=== PATIENT | male | born 1960 | race American Indian/Alaskan Native ===

== ENCOUNTER 2017-10-26 22:42 | Emergency (ER) | payer OTHER ==
[2017-10-26] MEDS ORDERED: Magnesium Citrate Solution 296 ML Bottle PO ONE (22:43)
[2017-10-26] MEDS ORDERED: Ondansetron 4 MG Tab.DIS PO ONE (22:43)
[2017-10-26] MEDS ORDERED: Sodium Chloride 0.9% 1,000 ML IV ONE (23:02)
[2017-10-26] MEDS ORDERED: Ketorolac 30 MG/ML SDV IVPUSH ONE (23:02)
[2017-10-26] MEDS ORDERED: Ondansetron 4 MG/2 ML SDV IV ONE (23:02)
[2017-10-26] MEDS ORDERED: HYDROmorphone 0.5 MG/0.5 ML Syringe IVPUSH ONE (23:50)
[2017-10-26] MEDS ORDERED: Insulin Regular, Human 100 Units/ML 3 ML Vial IV ONE (23:50)
--- NOTE | 2017-10-27 01:49 | EDM.PDOC ---
ED HPI GENERAL MEDICAL PROBLEM - General Chief Complaint: Flank Pain Stated Complaint: KECHINMAY PAIN [id number] Time Seen by Provider: 10/26/17 23:10 Source of Information: Reports: Patient, RN Notes Reviewed History Limitations: Reports: No Limitations - History of Present Illness INITIAL COMMENTS - FREE TEXT/NARRATIVE: c/o Left flank through lower left quad since yesterday , hx kidney stones in past. No fever or chills, transient nausea. Treatments PILLOW AGENT: Reports: Other (see below) Other Treatments PILLOW AGENT: hydrocodone. Left Flank Pain Score (Numeric/FACES): 9 - Related Data Allergies Allergy/AdvReac Type Severity Reaction Status Date / Time codeine Allergy Rash Verified 10/26/17 22:57 Home Meds: Home Meds Aspirin [Adult Low Dose Aspirin EC] 81 mg PO DAILY 07/27/13 [History] Isosorbide Mononitrate [Isosorbide Mononitrate ER] 60 mg PO DAILY 07/27/13 [ History] Metoprolol Tartrate 25 mg PO BID 07/27/13 [History] Pregabalin [Lyrica] 100 mg PO BID 07/27/13 [History] glyBURIDE [Glyburide] 2.5 mg PO BID 07/27/13 [History] Lisinopril 2.5 mg PO DAILY 01/28/15 [History] Insulin Detemir [Levemir] 25 units SQ DAILY 10/27/17 [History] Past Medical History HEENT History: Reports: Impaired Vision Other HEENT History: reading and night driving glasses Cardiovascular History: Reports: High Cholesterol, Hypertension, Stents, Other ( See Below) Other Cardiovascular History: Had angioplasty Respiratory History: Reports: None Gastrointestinal History: Reports: Diverticulosis Genitourinary History: Reports: Renal Calculus, Other (See Below) Other Genitourinary History: kidney failure Musculoskeletal History: Reports: Arthritis Neurological History: Reports: None Psychiatric History: Reports: None Endocrine/Metabolic History: Reports: Diabetes, Type II Hematologic History: Reports: None Immunologic History: Reports: None Oncologic (Cancer) History: Reports: None Dermatologic History: Reports: None - Past Surgical History Cardiovascular Surgical History: Reports: Coronary Artery Stent GI Surgical History: Reports: Appendectomy, Cholecystectomy Neurological Surgical History: Reports: None Musculoskeletal Surgical History: Reports: Arthroscopic Knee Dermatological Surgical History: Reports: None Social & Family History - Family History Family Medical History: Noncontributory - Tobacco Use Smoking Status *Q: Never Smoker Second Hand Smoke Exposure: No - Caffeine Use Caffeine Use: Reports: None - Alcohol Use Days Per Week of Alcohol Use: 0 - Recreational Drug Use Recreational Drug Use: No ED ROS GENERAL - Review of Systems Review Of Systems: ROS reveals no pertinent complaints other than HPI. ED EXAM, GI/ABD - Physical Exam Exam: See Below Exam Limited By: Other General Appearance: No Apparent Distress Eyes: Bilateral: EOMI Ears: Normal External Exam Nose: Normal Inspection Throat/Mouth: Normal Inspection Head: Atraumatic, Normocephalic Neck: Normal Inspection Respiratory/Chest: No Respiratory Distress, Lungs Clear, Normal Breath Sounds Cardiovascular: Normal Peripheral Pulses GI/Abdominal Exam: Normal Bowel Sounds, Soft, Tender (LLQ). No: Distended, Guarding Back Exam: Full Range of Motion. No: CVA Tenderness (L), CVA Tenderness (R) Extremities: Normal Inspection, Normal Range of Motion Neurological: Alert, Oriented Psychiatric: Anxious Skin Exam: Warm, Dry, Intact, Normal Color Course - Vital Signs Last Recorded V/S: Last Vital Signs Temp 96.9 F 10/27/17 02:03 Pulse 57 L 10/27/17 02:03 Resp 14 10/27/17 02:03 BP 161/89 H 10/27/17 02:03 Pulse Ox 95 10/27/17 02:03 - Orders/Labs/Meds Orders: Active Orders 24 hr Category Date Time Status Glucose [Blood Glucose Check, Bedside] [RC] ONETIME Care 10/27/17 01:46 Active Labs: Laboratory Tests 10/26/17 10/26/17 10/26/17 Range/Units 22:50 23:10 23:10 WBC 9.3 (5.0-10.0) 10^3/uL RBC 4.44 L (4.6-6.2) 10^6/uL Hgb 13.6 L (14.0-18.0) g/dL Hct 38.7 L (40.0-54.0) % MCV 87.2 (80-100) fL MCH 30.6 (27.0-34.0) pg MCHC 35.1 H (33.0-35.0) g/dL Plt Count 289 (150-450) 10^3/uL Neut % (Auto) 54.7 (42.2-75.2) % Lymph % (Auto) 29.7 (20.5-50.1) % [place] % (Auto) 10.0 H (2-8) % Eos % (Auto) 5.4 H (1.0-3.0) % Baso % (Auto) 0.2 (0.0-1.0) % Sodium 134 L (135-145) mmol/L Potassium 4.1 (3.6-5.0) mmol/L Chloride 100 L (101-111) mmol/L Carbon Dioxide 25.0 (21.0-31.0) mmol/L Anion Gap 13.1 BUN 22 H (7-18) mg/dL Creatinine 1.8 H (0.6-1.3) mg/dL Est Cr Clr Drug Dosing 52.40 mL/min Estimated GFR (MDRD) 39 BUN/Creatinine Ratio 12.22 Glucose 407 H* (74-105) mg/dL POC Glucose (70-105) mg/dl Calcium 8.7 (8.4-10.2) mg/dl Total Bilirubin 0.8 (0.2-1.0) mg/dL AST 22 (10-42) IU/L ALT 17 (10-60) IU/L Alkaline Phosphatase 111 (42-121) IU/L Total Protein 7.5 (6.7-8.2) g/dl Albumin 4.1 (3.2-5.5) g/dl Globulin 3.4 Albumin/Globulin Ratio 1.21 Urine Color Yellow (YELLOW) Urine Appearance Clear (CLEAR) Urine pH 6.0 (5.0-9.0) Ur Specific [place] 1.010 (1.005-1.030) Urine Protein 30 H (NEGATIVE) Urine Glucose (UA) 500 H (NEGATIVE) Urine Ketones Negative (NEGATIVE) Urine Occult Blood Negative (NEGATIVE) Urine Nitrite Negative (NEGATIVE) Urine Bilirubin Negative (NEGATIVE) Urine Urobilinogen 0.2 (0.2-1.0) mg/dL Ur Leukocyte Esterase Negative (NEGATIVE) Urine RBC Not seen /HPF Urine WBC Not seen (0-5/HPF) /HPF Ur Epithelial Cells Rare /HPF Urine Bacteria Rare (0-FEW/HPF) /HPF 10/27/17 10/27/17 Range/Units 01:35 01:49 WBC (5.0-10.0) 10^3/uL RBC (4.6-6.2) 10^6/uL Hgb (14.0-18.0) g/dL Hct (40.0-54.0) % MCV (80-100) fL MCH (27.0-34.0) pg MCHC (33.0-35.0) g/dL Plt Count (150-450) 10^3/uL Neut % (Auto) (42.2-75.2) % Lymph % (Auto) (20.5-50.1) % Sierra % (Auto) (2-8) % Eos % (Auto) (1.0-3.0) % Baso % (Auto) (0.0-1.0) % Sodium (135-145) mmol/L Potassium (3.6-5.0) mmol/L Chloride (101-111) mmol/L Carbon Dioxide (21.0-31.0) mmol/L Anion Gap BUN (7-18) mg/dL Creatinine (0.6-1.3) mg/dL Est Cr Clr Drug Dosing mL/min Estimated GFR (MDRD) BUN/Creatinine Ratio Glucose (74-105) mg/dL POC Glucose 259 H 257 H (70-105) mg/dl Calcium (8.4-10.2) mg/dl Total Bilirubin (0.2-1.0) mg/dL AST (10-42) IU/L ALT (10-60) IU/L Alkaline Phosphatase (42-121) IU/L Total Protein (6.7-8.2) g/dl Albumin (3.2-5.5) g/dl Globulin Albumin/Globulin Ratio Urine Color (YELLOW) Urine Appearance (CLEAR) Urine pH (5.0-9.0) Ur Specific [place] (1.005-1.030) Urine Protein (NEGATIVE) Urine Glucose (UA) (NEGATIVE) Urine Ketones (NEGATIVE) Urine Occult Blood (NEGATIVE) Urine Nitrite (NEGATIVE) Urine Bilirubin (NEGATIVE) Urine Urobilinogen (0.2-1.0) mg/dL Ur Leukocyte Esterase (NEGATIVE) Urine RBC /HPF Urine WBC (0-5/HPF) /HPF Ur Epithelial Cells /HPF Urine Bacteria (0-FEW/HPF) /HPF Meds: Medications Discontinued Medications Generic Name Dose Route Start Last Admin Trade Name Freq PRN Reason Stop Dose Admin Hydromorphone HCl 1 mg 10/26/17 23:50 10/27/17 00:02 Dilaudid IVPUSH 10/26/17 23:51 1 mg ONETIME ONE Administration Sodium Chloride 1,000 mls @ 999 mls/hr 10/26/17 23:02 10/26/17 23:18 Normal Saline IV 10/27/17 00:02 999 mls/hr .BOLUS ONE Administration Insulin Human Regular 5 unit 10/26/17 23:50 10/27/17 00:03 Humulin R IV 10/26/17 23:51 5 units ONETIME ONE Administration Ketorolac Tromethamine 30 mg 10/26/17 23:02 10/26/17 23:15 Toradol IVPUSH 10/26/17 23:03 30 mg ONETIME ONE Administration Magnesium Citrate Confirm 10/27/17 01:52 10/27/17 02:06 Citrate Of Magnesia Administered 10/27/17 01:53 Not Given Dose 296 ml .ROUTE .STK-MED ONE Ondansetron HCl 4 mg 10/26/17 23:02 10/26/17 23:15 Zofran IV 10/26/17 23:03 4 mg ONETIME ONE Administration Ondansetron HCl Confirm 10/27/17 01:52 10/27/17 02:06 Zofran Odt Administered 10/27/17 01:53 Not Given Dose 4 mg .ROUTE .STK-MED ONE Ondansetron HCl Confirm 10/27/17 01:53 10/27/17 02:06 Zofran Odt Administered 10/27/17 01:54 Not Given Dose 4 mg .ROUTE .STK-MED ONE - Radiology Interpretation Free Text/Narrative:: Abdominal CT: No obstructing urinary calculus disease mild inflammation edema around pancreatic head colonic constipation, diverticulosis with out evidence of diverticulitis Departure - Departure Time of Disposition: 01:48 Disposition: Home, Self-Care 01 Condition: Good Clinical Impression: Constipation Qualifiers: Constipation type: unspecified constipation type Qualified Code(s): K59.00 - Constipation, unspecified - Discharge Information Instructions: Constipation, Adult, [id number] Referrals: PCP,None [Primary Care Provider] - Forms: ED Department Discharge Additional Instructions: increase fluids in diet magnesium citrate on bottle tonight zofran 4mg ODT one every 4 hours as needed for nausea #2 clinic follow up next week - My Orders Last 24 Hours: My Active Orders 10/27/17 01:46 Glucose [Blood Glucose Check, Bedside] [RC] ONETIME - Assessment/Plan Last 24 Hours: My Active Orders 10/27/17 01:46 Glucose [Blood Glucose Check, Bedside] [RC] ONETIME
[2017-10-27] MEDS ORDERED: Magnesium Citrate Solution 296 ML Bottle ONE (01:52)
[2017-10-27] MEDS ORDERED: Ondansetron 4 MG Tab.DIS ONE ×2 (01:52→01:53)
[2017-10-27 02:05] VITALS: BP 161/89
== END 2017-10-27 02:11 | disposition home or self-care (01) ==
LOC: DL.ED 22:42
DX: K59.00 Constipation, unspecified (principal); I10 Essential (primary) hypertension; E78.00 Pure hypercholesterolemia, unspecified; E11.9 Type 2 diabetes mellitus without complications; Z95.5 Presence of coronary angioplasty implant and graft; Z90.49 Acquired absence of other specified parts of digestive tract; Z79.4 Long term (current) use of insulin; Z79.82 Long term (current) use of aspirin; Z79.899 Other long term (current) drug therapy; Z88.5 Allergy status to narcotic agent; Z87.442 Personal history of urinary calculi
CPT/HCPCS: 36415; 74176; 80053; 81001; 82962; 85025; 96361; 96374; 96375; 99284; J1170; J1815; J1885; J2405; J7030; A9270-GY

== ENCOUNTER 2017-10-27 12:26 | Emergency (ER) | payer OTHER ==
[2017-10-27] MEDS ORDERED: Sodium Chloride 0.9% 10 ML Syringe FLUSH PRN (13:12)
[2017-10-27] MEDS ORDERED: Sodium Chloride 0.9% 1,000 ML IV ONE (13:13)
[2017-10-27] MEDS ORDERED: Ondansetron 4 MG/2 ML SDV IV ONE ×2 (13:13→15:00)
--- NOTE | 2017-10-27 14:33 | CR ---
Clinical history: 57-year-old male with abdominal pain (constipation?) reported to have "diverticulos is colon; mild inflammation around the pancreatic head; no obstructing urinary calculus (appendectomy and cholecystectomy)" on CT exam 14 hours ago". Interpretation: 4 films (flat/upright abdomen) confirm surgical clips right upper quadrant gallbladde r fossa. Large male with hypertrophic arthritic changes of the spine. No sign of abdominal soft tissue mass lesion, pathologic calcification, mechanical bowel obstruction or free intraperitoneal air. Lung bases clear. Minimal stool. No new foreign bodies. CONCLUSION: No acute intraperitoneal abnormality.
[2017-10-27 16:19] VITALS: BP 102/43
--- NOTE | 2017-10-27 17:48 | EDM.PDOC ---
Scribed by Olive Maria 10/27/17 [id number] for Ralph Swan MD ED HPI GENERAL MEDICAL PROBLEM - General Chief Complaint: Gastrointestinal Problem Stated Complaint: CONSTIPATION & SICK FROM MEDS Time Seen by Provider: 10/27/17 13:12 Source of Information: Reports: Patient, RN, RN Notes Reviewed History Limitations: Reports: No Limitations - History of Present Illness INITIAL COMMENTS - FREE TEXT/NARRATIVE: Pt presents with c/o constipation, abdominal pain and vomiting. He states he was seen here last night and had labs and CT abd/pelvis. Pt was given Mag. Citrate, but he vomits it up. No BM x4-5 days. Denies fever, chills, or urinary Sx's. Onset: Gradual Location: Reports: Abdomen Quality: Reports: Ache, Pressure Severity: Moderate Improves with: Reports: None Worsens with: Reports: Eating Associated Symptoms: Reports: No Other Symptoms Abdomen Pain Score (Numeric/FACES): 8 - Related Data Allergies Allergy/AdvReac Type Severity Reaction Status Date / Time codeine Allergy Rash Verified 10/26/17 22:57 Home Meds: Home Meds Aspirin [Adult Low Dose Aspirin EC] 81 mg PO DAILY 07/27/13 [History] Isosorbide Mononitrate [Isosorbide Mononitrate ER] 60 mg PO DAILY 07/27/13 [ History] Metoprolol Tartrate 25 mg PO BID 07/27/13 [History] Pregabalin [Lyrica] 100 mg PO BID 07/27/13 [History] glyBURIDE [Glyburide] 2.5 mg PO BID 07/27/13 [History] Lisinopril 2.5 mg PO DAILY 01/28/15 [History] Insulin Detemir [Levemir] 25 units SQ DAILY 10/27/17 [History] Past Medical History HEENT History: Reports: Impaired Vision Other HEENT History: reading and night driving glasses Cardiovascular History: Reports: High Cholesterol, Hypertension, Stents, Other ( See Below) Other Cardiovascular History: Had angioplasty Respiratory History: Reports: None Gastrointestinal History: Reports: Diverticulosis Genitourinary History: Reports: Renal Calculus, Other (See Below) Other Genitourinary History: kidney failure Musculoskeletal History: Reports: Arthritis Neurological History: Reports: None Psychiatric History: Reports: None Endocrine/Metabolic History: Reports: Diabetes, Type II Hematologic History: Reports: None Immunologic History: Reports: None Oncologic (Cancer) History: Reports: None Dermatologic History: Reports: None - Past Surgical History Cardiovascular Surgical History: Reports: Coronary Artery Stent GI Surgical History: Reports: Appendectomy, Cholecystectomy Neurological Surgical History: Reports: None Musculoskeletal Surgical History: Reports: Arthroscopic Knee Dermatological Surgical History: Reports: None Social & Family History - Family History Family Medical History: Noncontributory - Tobacco Use Smoking Status *Q: Never Smoker Second Hand Smoke Exposure: No - Caffeine Use Caffeine Use: Reports: Coffee, Soda - Alcohol Use Days Per Week of Alcohol Use: 0 - Recreational Drug Use Recreational Drug Use: No - Living Situation & Occupation Living situation: Reports: Occupation: Employed ED ROS GENERAL - Review of Systems Review Of Systems: ROS reveals no pertinent complaints other than HPI. ED EXAM, GI/ABD - Physical Exam Exam: See Below Exam Limited By: No Limitations General Appearance: Alert, WD/WN, No Apparent Distress, Obese, Other ( uncomfortable but non-toxic appearing) Eyes: Bilateral: Normal Appearance (no scleral icterus) Nose: Normal Inspection Throat/Mouth: Normal Inspection Head: Atraumatic, Normocephalic Neck: Normal Inspection Respiratory/Chest: No Respiratory Distress, Lungs Clear, Normal Breath Sounds, No Accessory Muscle Use, Chest Non-Tender Cardiovascular: Regular Rate, Rhythm, No Edema GI/Abdominal Exam: Soft, No Distention, Tender (tender to palp. of LUQ and LLQ) , Abnormal Bowel Sounds (hypoactive). No: Guarding, Rigid, Rebound (Male) Exam: Deferred Rectal (Males) Exam: Deferred Back Exam: Normal Inspection, Full Range of Motion. No: CVA Tenderness (L), CVA Tenderness (R) Extremities: Normal Inspection, Normal Range of Motion, Non-Tender, Normal Capillary Refill, No Pedal Edema Neurological: Alert, Oriented, CN II-XII Intact, Normal Cognition, Normal Gait, No Motor/Sensory Deficits Psychiatric: Normal Affect, Normal Mood Skin Exam: Warm, Dry, Intact, Normal Color, No Rash Course - Vital Signs Last Recorded V/S: Last Vital Signs Temp 37.1 C 10/27/17 16:05 Pulse 65 10/27/17 16:05 Resp 18 10/27/17 16:05 BP 102/43 L 03/10/18 16:05 Pulse Ox 96 10/27/17 16:05 - Orders/Labs/Meds Orders: Active Orders 24 hr Category Date Time Status Enema [RC] ASDIRECTED Care 10/27/17 14:59 Active Peripheral IV Care [RC] . DIRECTED Care 10/27/17 13:13 Active Peripheral IV Insertion Adult [OM.PC] Stat Oth 10/27/17 13:12 Ordered Labs: Laboratory Tests 10/27/17 10/27/17 Range/Units 13:35 13:35 WBC 13.2 H (5.0-10.0) 10^3/uL RBC 4.42 L (4.6-6.2) 10^6/uL Hgb 13.5 L (14.0-18.0) g/dL Hct 38.7 L (40.0-54.0) % MCV 87.6 (80-100) fL MCH 30.5 (27.0-34.0) pg MCHC 34.9 (33.0-35.0) g/dL Plt Count 279 (150-450) 10^3/uL Neut % (Auto) 80.0 H (42.2-75.2) % Lymph % (Auto) 12.8 L (20.5-50.1) % [place] % (Auto) 6.1 (2-8) % Eos % (Auto) 1.0 (1.0-3.0) % Baso % (Auto) 0.1 (0.0-1.0) % Sodium 139 (135-145) mmol/L Potassium 5.0 (3.6-5.0) mmol/L Chloride 102 (101-111) mmol/L Carbon Dioxide 30.0 (21.0-31.0) mmol/L Anion Gap 12.0 BUN 26 H (7-18) mg/dL Creatinine 1.5 H (0.6-1.3) mg/dL Est Cr Clr Drug Dosing 64.69 mL/min Estimated GFR (MDRD) 49 BUN/Creatinine Ratio 17.33 Glucose 219 H (74-105) mg/dL Calcium 8.9 (8.4-10.2) mg/dl Total Bilirubin 0.9 (0.2-1.0) mg/dL AST 19 (10-42) IU/L ALT 15 (10-60) IU/L Alkaline Phosphatase 78 (42-121) IU/L Total Protein 7.4 (6.7-8.2) g/dl Albumin 4.0 (3.2-5.5) g/dl Globulin 3.4 Albumin/Globulin Ratio 1.18 Amylase 54 (28-100) U/L Lipase 35 (22-51) U/L Meds: Medications Discontinued Medications Generic Name Dose Route Start Last Admin Trade Name Freq PRN Reason Stop Dose Admin Sodium Chloride 1,000 mls @ 999 mls/hr 10/27/17 13:13 10/27/17 13:32 Normal Saline IV 10/27/17 14:13 999 mls/hr .BOLUS ONE Administration Ondansetron HCl 4 mg 10/27/17 13:13 10/27/17 13:33 Zofran IV 10/27/17 13:14 4 mg ONETIME ONE Administration Ondansetron HCl 4 mg 10/27/17 15:00 Zofran IV 10/27/17 15:01 ONETIME ONE Sodium Chloride 10 ml 10/27/17 13:12 10/27/17 13:33 Saline Flush FLUSH 10 ml ASDIRECTED PRN Administration Keep Vein Open - Radiology Interpretation Free Text/Narrative:: 2V ABD. Xray: non-obstructive bowel gas pattern per Rad. report. - Re-Assessments/Exams Free Text/Narrative Re-Assessment/Exam: 10/27/17 Pt reports feeling very much improved following tx with soap suds enemas and wishes to be d/c'd home. Departure - Departure Time of Disposition: 16:46 Disposition: Home, Self-Care 01 Condition: Good Clinical Impression: Constipation Qualifiers: Constipation type: unspecified constipation type Qualified Code(s): K59.00 - Constipation, unspecified - Discharge Information Instructions: High-Fiber Diet, Constipation, Adult, [id number] Forms: ED Department Discharge Additional Instructions: Drink plenty of water. High fiber diet. Follow up in clinic in 2 days if not completely improved. Return to ER if worse at any time. - My Orders Last 24 Hours: My Active Orders 10/27/17 13:12 Peripheral IV Insertion Adult [OM.PC] Stat 10/27/17 13:13 Peripheral IV Care [RC] . DIRECTED 10/27/17 14:59 Enema [RC] ASDIRECTED - Assessment/Plan Last 24 Hours: My Active Orders 10/27/17 13:12 Peripheral IV Insertion Adult [OM.PC] Stat 10/27/17 13:13 Peripheral IV Care [RC] . DIRECTED 10/27/17 14:59 Enema [RC] ASDIRECTED I have read and agree with the documentation that has been completed regarding this visit. By signing this record, I attest that the documentation was completed in my physical presence and is an accurate record of the encounter.
== END 2017-10-27 17:25 | disposition home or self-care (01) ==
LOC: DL.ED 12:26
DX: K59.00 Constipation, unspecified (principal); I10 Essential (primary) hypertension; E78.00 Pure hypercholesterolemia, unspecified; E11.9 Type 2 diabetes mellitus without complications; Z79.82 Long term (current) use of aspirin; Z79.4 Long term (current) use of insulin; Z79.899 Other long term (current) drug therapy; Z88.5 Allergy status to narcotic agent
CPT/HCPCS: 36415; 74021; 80053; 82150; 83690; 85025; 96361; 96374; 99284; J2405; J7030; J7050

== ENCOUNTER 2018-12-11 22:29 | Emergency (ER) | payer OTHER ==
[2018-12-11 22:41] VITALS: BP 128/92
== END 2018-12-11 23:22 | disposition left against medical advice (07) ==
LOC: DL.ED 22:29
DX: Z53.21 Procedure and treatment not carried out due to patient leaving prior to being seen by health care provider (principal)
CPT/HCPCS: 99282

== ENCOUNTER 2018-12-16 17:08 | Emergency (ER) | payer BC, OTHER ==
[2018-12-16 17:27] VITALS: BP 122/84
--- NOTE | 2018-12-17 12:30 | EDM.PDOC ---
Scribed by Olive Maria 12/16/18 1837 for Geno Azevedo NP ED HPI GENERAL MEDICAL PROBLEM - General Chief Complaint: ENT Problem Stated Complaint: SINUS INFECTION [id number] Time Seen by Provider: 12/16/18 18:20 Source of Information: Reports: Patient, RN, RN Notes Reviewed History Limitations: Reports: No Limitations - History of Present Illness INITIAL COMMENTS - FREE TEXT/NARRATIVE: Patient presents to ER with complaint of sinus pressure/pain, dizziness which began 3 weeks ago. He could not get into the clinic before next week. He has had nausea at times. No fever, chills, cough, vomiting or diarrhea. Onset: Gradual Duration: Constant Location: Reports: Generalized Quality: Reports: Ache Severity: Mild Improves with: Reports: None Worsens with: Reports: None Associated Symptoms: Reports: No Other Symptoms - Related Data Allergies Allergy/AdvReac Type Severity Reaction Status Date / Time codeine Allergy Rash Verified 12/16/18 17:24 Home Meds: Home Meds Aspirin [Adult Low Dose Aspirin EC] 81 mg PO DAILY 07/27/13 [History] Isosorbide Mononitrate [Isosorbide Mononitrate ER] 60 mg PO DAILY 07/27/13 [ History] Metoprolol Tartrate 25 mg PO BID 07/27/13 [History] Pregabalin [Lyrica] 100 mg PO BID 07/27/13 [History] glyBURIDE [Glyburide] 2.5 mg PO BID 07/27/13 [History] Lisinopril 2.5 mg PO DAILY 01/28/15 [History] Insulin Detemir [Levemir] 25 units SQ DAILY 10/27/17 [History] Past Medical History HEENT History: Reports: Impaired Vision Other HEENT History: reading and night driving glasses Cardiovascular History: Reports: High Cholesterol, Hypertension, Stents, Other ( See Below) Other Cardiovascular History: Had angioplasty Respiratory History: Reports: None Gastrointestinal History: Reports: Diverticulosis Genitourinary History: Reports: Renal Calculus, Other (See Below) Other Genitourinary History: kidney failure Musculoskeletal History: Reports: Arthritis Neurological History: Reports: None Psychiatric History: Reports: None Endocrine/Metabolic History: Reports: Diabetes, Type II Hematologic History: Reports: None Immunologic History: Reports: None Oncologic (Cancer) History: Reports: None Dermatologic History: Reports: None - Past Surgical History Cardiovascular Surgical History: Reports: Coronary Artery Stent GI Surgical History: Reports: Appendectomy, Cholecystectomy Neurological Surgical History: Reports: None Musculoskeletal Surgical History: Reports: Arthroscopic Knee Dermatological Surgical History: Reports: None Social & Family History - Family History Family Medical History: Noncontributory - Tobacco Use Smoking Status *Q: Never Smoker - Caffeine Use Caffeine Use: Reports: Coffee - Recreational Drug Use Recreational Drug Use: No - Living Situation & Occupation Living situation: Reports: Occupation: Employed ED ROS ENT - Review of Systems Review Of Systems: ROS reveals no pertinent complaints other than HPI. ED EXAM, ENT - Physical Exam Exam: See Below Exam Limited By: No Limitations General Appearance: Alert, WD/WN, No Apparent Distress Eye Exam: Bilateral Eye: EOMI, Normal Inspection, PERRL Ears: Normal External Exam, Normal Canal, Hearing Grossly Normal, Normal TMs Nose: Other (sinus tenderness frontal/maxillary) Mouth/Throat: Normal Inspection, Normal Gums, Normal Lips, Normal Oropharynx, Normal Teeth Head: Atraumatic, Normocephalic Neck: Normal Inspection, Supple, Non-Tender, Full Range of Motion Respiratory/Chest: No Respiratory Distress, Lungs Clear, Normal Breath Sounds, No Accessory Muscle Use, Chest Non-Tender Cardiovascular: Normal Peripheral Pulses, Regular Rate, Rhythm, No Edema, No Gallop, No JVD, No Murmur, No Rub GI/Abdominal: Normal Bowel Sounds, Soft, Non-Tender, No Organomegaly, No Distention, No Abnormal Bruit, No Mass (Male) Exam: Deferred Rectal (Males) Exam: Deferred Back: Normal Inspection, Full Range of Motion Extremities: Normal Inspection, Normal Range of Motion, Non-Tender, No Pedal Edema, Normal Capillary Refill Neurological: Alert, Oriented, CN II-XII Intact, Normal Cognition, Normal Gait, Normal Reflexes, No Motor/Sensory Deficits Psychiatric: Normal Affect, Normal Mood Skin: Warm, Dry, Intact, Normal Color, No Rash Lymphatic: No Adenopathy Course - Vital Signs Last Recorded V/S: Last Vital Signs Temp 35.3 C 12/16/18 17:26 Pulse 89 12/16/18 17:26 Resp 20 12/16/18 17:26 BP 122/84 12/16/18 17:26 Pulse Ox Departure - Departure Time of Disposition: 18:36 Disposition: Home, Self-Care 01 Condition: Fair Clinical Impression: Sinusitis Qualifiers: Sinusitis location: unspecified location Chronicity: acute Recurrence: not specified as recurrent Qualified Code(s): J01.90 - Acute sinusitis, unspecified - Discharge Information *PRESCRIPTION DRUG MONITORING PROGRAM REVIEWED*: No *COPY OF PRESCRIPTION DRUG MONITORING REPORT IN PATIENT BERNARDO: No Instructions: Sinusitis, Adult, [id number], How to Perform a Sinus Rinse, [id number] Referrals: PCP,None [Primary Care Provider] - Forms: ED Department Discharge Additional Instructions: RX: Augmentin Drink plenty of water May use Tylenol and/or ibuprofen as directed for pain/fever May use over the counter decongestant (Coricidan HBP for high blood pressure) May do sinus rinses as directed I have read and agree with the documentation that has been completed regarding this visit. By signing this record, I attest that the documentation was completed in my physical presence and is an accurate record of the encounter.
== END 2018-12-16 18:45 | disposition home or self-care (01) ==
LOC: DL.ED 17:08
DX: J01.90 Acute sinusitis, unspecified (principal); E11.9 Type 2 diabetes mellitus without complications; E78.00 Pure hypercholesterolemia, unspecified; I10 Essential (primary) hypertension; Z88.5 Allergy status to narcotic agent; Z79.82 Long term (current) use of aspirin; Z79.899 Other long term (current) drug therapy; Z79.4 Long term (current) use of insulin
CPT/HCPCS: 99283

== ENCOUNTER 2021-03-09 15:04 | Emergency (ER) | payer OTHER ==
--- NOTE | 2021-03-09 15:36 | EDM.PDOC ---
ED HPI GENERAL MEDICAL PROBLEM - General Chief Complaint: Lower Extremity Injury/Pain Stated Complaint: KNEE INFECTION Time Seen by Provider: 03/09/21 15:40 Source of Information: Reports: Patient, Provider ([facility] DIS[employer] DEPARTMENT MANAGER), RN, RN Notes Reviewed History Limitations: Reports: No Limitations - History of Present Illness INITIAL COMMENTS - FREE TEXT/NARRATIVE: Jordin is a 60 y/o male who presents to the ED via personal vehicle at the instruction of his [facility] provider for right knee pain. Per provider report, the patient's right knee was tapped yesterday with 80cc of cloudy aspirate removed; culture of the aspirate resulted with high neutrophil count and uric acid counts. The patient reports his pain to this joint began approximately two weeks ago and has progressively worsened in that time to the point he is unable to ambulate. Additionally, he now notes pain to his right lateral ankle. He denies mechanism of injury. The patient does attest to nausea and low grade temps with Tmax of 99.9 yesterday, however he has been taking acetaminophen and Hydrocodone/acetaminophen for pain. He denies shaking chills, rash, chest pain, palpitations, shortness of breath, vomiting, or diarrhea. He denies tobacco, alcohol, or recreational drug use. - Related Data Allergies Allergy/AdvReac Type Severity Reaction Status Date / Time acetaminophen Allergy Other Verified 05/07/19 10:01 [From Tylenol-Codeine] buspirone [From BuSpar] Allergy Other Verified 05/07/19 10:01 ciprofloxacin Allergy Other Verified 05/07/19 10:01 codeine Allergy Rash Verified 05/07/19 10:01 ibuprofen [From Motrin] Allergy Other Verified 05/07/19 10:01 tramadol Allergy Other Verified 05/07/19 10:01 Home Meds: Home Meds Aspirin [Adult Low Dose Aspirin EC] 81 mg PO DAILY 07/27/13 [History] Metoprolol Tartrate 50 mg PO BID 07/27/13 [History] Pregabalin [Lyrica] 100 mg PO BID 07/27/13 [History] Insulin Detemir [Levemir] 25 units SQ DAILY 10/27/17 [History] Calcium Citrate/Vitamin D3 [Calcium Citrate - Vit D Caplet] 1 tab PO BID 05/05/19 [History] Clopidogrel [Plavix] 75 mg PO ASDIRECTED 05/05/19 [History] Diclofenac Sodium [Voltaren 0.1% Ophth Soln] 1 applic TOP QID PRN 05/05/19 [History] Fluticasone Propionate [Flonase Allergy Relief] 1 - 2 spray NASBOTH ASDIRECTED 05/05/19 [History] Insulin Glarg,Human.Rec.Analog [Lantus] 10 units INJECT BID 05/05/19 [History] Losartan [Cozaar] 50 mg PO DAILY 05/05/19 [History] Nitroglycerin [Nitrostat] 0.4 mg PO ASDIRECTED PRN 05/05/19 [History] Pantoprazole [ProTONIX] 40 mg PO DAILY 05/05/19 [History] Pioglitazone HCl [Actos] 45 mg PO DAILY 05/05/19 [History] Simvastatin 80 mg PO BEDTIME 05/05/19 [History] glipiZIDE [Glipizide ER] 10 mg PO DAILY 05/05/19 [History] hydroCHLOROthiazide [Microzide] 12.5 mg PO DAILY 05/05/19 [History] metFORMIN [Glucophage] 500 mg PO BIDMEALS 05/05/19 [History] Past Medical History HEENT History: Reports: Allergic Rhinitis, Cataract, Impaired Vision Other HEENT History: reading and night driving glasses. LEFT EYE CATARACT Cardiovascular History: Reports: CAD, High Cholesterol, Hypertension, Stents, Other (See Below) Other Cardiovascular History: Had angioplasty Respiratory History: Reports: Sleep Apnea Gastrointestinal History: Reports: Diverticulosis, GERD Genitourinary History: Reports: Renal Calculus, Other (See Below) Other Genitourinary History: kidney failure- PATIENT DENIES. R) kidney mass- PATIENT DENIES. KIDNEY STONES Musculoskeletal History: Reports: Arthritis Neurological History: Reports: None Psychiatric History: Reports: None Endocrine/Metabolic History: Reports: Diabetes, Type II Hematologic History: Reports: None Immunologic History: Reports: None Oncologic (Cancer) History: Reports: None Dermatologic History: Reports: Eczema - Infectious Disease History Infectious Disease History: Reports: None - Past Surgical History HEENT Surgical History: Reports: None Cardiovascular Surgical History: Reports: Coronary Artery Stent GI Surgical History: Reports: Appendectomy, Cholecystectomy Male Surgical History: Reports: None Neurological Surgical History: Reports: None Musculoskeletal Surgical History: Reports: Arthroscopic Knee Dermatological Surgical History: Reports: None Social & Family History - Family History Family Medical History: No Pertinent Family History - Caffeine Use Caffeine Use: Reports: Coffee - Living Situation & Occupation Living situation: Reports: Occupation: Employed Review of Systems - Review of Systems Review Of Systems: Comprehensive ROS is negative, except as noted in HPI. ED EXAM, GENERAL - Physical Exam Exam: See Below Exam Limited By: No Limitations General Appearance: Alert, Mild Distress (Right knee pain; Ill-appearing), Obese Eye Exam: Bilateral Eye: EOMI, Normal Inspection, PERRL (3mm) Ears: Normal External Exam, Hearing Grossly Normal Nose: Normal Inspection, Normal Mucosa, No Blood Throat/Mouth: Normal Inspection, Normal Oropharynx, Normal Voice, No Airway Compromise Head: Atraumatic, Normocephalic Neck: Normal Inspection, Supple, Non-Tender, Full Range of Motion Respiratory/Chest: No Respiratory Distress, Lungs Clear, Normal Breath Sounds, No Accessory Muscle Use, Chest Non-Tender Cardiovascular: Normal Peripheral Pulses, Regular Rate, Rhythm, No Edema, No Gallop, No JVD, No Murmur, No Rub Peripheral Pulses: 2+: Radial (L), Radial (R) GI/Abdominal: Normal Bowel Sounds, Soft, Non-Tender, No Distention, No Abnormal Bruit, No Mass, Pelvis Stable (Male) Exam: Deferred Rectal (Males) Exam: Deferred Back Exam: Normal Inspection, Full Range of Motion Extremities: Leg Pain (To right knee and lateral ankle), Limited Range of Motion (To right knee), Increased Warmth (To right knee), Redness (To right knee and lateral ankle) Neurological: Alert, Oriented, CN II-XII Intact, Normal Cognition, No Motor/Sensory Deficits, Abnormal Gait (Unable to bear weight to right extremity) Psychiatric: Normal Affect, Normal Mood Skin Exam: Warm, Intact, No Rash, Diaphoretic, Erythema (To right knee and lateral ankle). No: Jaundice Course - Vital Signs Last Recorded V/S: Last Vital Signs Temp 98.0 F 03/09/21 15:33 Pulse 83 03/09/21 15:33 Resp 16 03/09/21 15:33 BP 120/77 03/09/21 15:33 Pulse Ox 99 03/09/21 15:33 - Orders/Labs/Meds Labs: Laboratory Tests 07/21/21 07/21/21 07/21/21 Range/Units 15:32 15:32 15:32 WBC 12.6 H (5.0-10.0) 10^3/uL RBC 4.77 (4.6-6.2) 10^6/uL Hgb 14.6 (14.0-18.0) g/dL Hct 42.8 (40.0-54.0) % MCV 89.7 (80-100) fL MCH 30.6 (27.0-34.0) pg MCHC 34.1 (33.0-35.0) g/dL Plt Count 321 (150-450) 10^3/uL Neut % (Auto) 63.4 (42.2-75.2) % Lymph % (Auto) 20.2 L (20.5-50.1) % [place] % (Auto) 12.9 H (2-8) % Eos % (Auto) 3.3 H (1.0-3.0) % Baso % (Auto) 0.2 (0.0-1.0) % ESR (0-15) mm/hr PT 10.1 (9.0-12.0) SEC INR 1.0 (0.9-1.2) APTT 28.9 (22.0-34.0) SEC Sodium 139 (136-145) mmol/L Potassium 3.7 (3.5-5.1) mmol/L Chloride 99 (98-107) mmol/L Carbon Dioxide 30 (21-32) mmol/L Anion Gap 13.7 H (7-13) mEq/L BUN 23 H (7-18) mg/dL Creatinine 1.64 H (0.70-1.30) mg/dL Est Cr Clr Drug Dosing 53.89 mL/min Estimated GFR (MDRD) 43 BUN/Creatinine Ratio 14.0 (No establ ref range) Glucose 93 (70-99) mg/dL Lactic Acid (0.4-2.0) mmol/L Calcium 8.4 L (8.5-10.1) mg/dL Magnesium 1.6 L (1.8-2.4) mg/dL Total Bilirubin 1.1 H (0.2-1.0) mg/dL AST 19 (15-37) U/L ALT 22 (16-63) U/L Alkaline Phosphatase 92 (46-116) U/L C-Reactive Protein 17.5 H (0.0-0.9) mg/dL Total Protein 7.6 (6.4-8.2) g/dL Albumin 3.2 L (3.4-5.0) g/dL Globulin 4.4 Albumin/Globulin Ratio 0.73 Urine Color (YELLOW) Urine Appearance (CLEAR) Urine pH (5.0-9.0) Ur Specific [place] (1.005-1.030) Urine Protein (NEGATIVE) Urine Glucose (UA) (NEGATIVE) Urine Ketones (NEGATIVE) Urine Occult Blood (NEGATIVE) Urine Nitrite (NEGATIVE) Urine Bilirubin (NEGATIVE) Urine Urobilinogen (0.2-1.0) mg/dL Ur Leukocyte Esterase (NEGATIVE) Urine RBC /HPF Urine WBC (0-5/HPF) /HPF Ur Epithelial Cells (NOT SEEN) /HPF Amorphous Sediment (NOT SEEN) /HPF Urine Bacteria (0-FEW/HPF) /HPF Urine Mucus (NOT SEEN) /LPF Urine Opiates Screen (NEGATIVE) Ur Oxycodone Screen (NEGATIVE) Urine Methadone Screen (NEGATIVE) Ur Barbiturates Screen (NEGATIVE) U Tricyclic Antidepress (NEGATIVE) Ur Phencyclidine Scrn (NEGATIVE) Ur Amphetamine Screen (NEGATIVE) U Methamphetamines Scrn (NEGATIVE) Urine MDMA Screen (NEGATIVE) U Benzodiazepines Scrn (NEGATIVE) Urine Cocaine Screen (NEGATIVE) U Marijuana (THC) Screen (NEGATIVE) Ethyl Alcohol < 3 (0) mg/dL 03/09/21 03/09/21 03/09/21 Range/Units 15:32 15:32 18:16 WBC (5.0-10.0) 10^3/uL RBC (4.6-6.2) 10^6/uL Hgb (14.0-18.0) g/dL Hct (40.0-54.0) % MCV (80-100) fL MCH (27.0-34.0) pg MCHC (33.0-35.0) g/dL Plt Count (150-450) 10^3/uL Neut % (Auto) (42.2-75.2) % Lymph % (Auto) (20.5-50.1) % [place] % (Auto) (2-8) % Eos % (Auto) (1.0-3.0) % Baso % (Auto) (0.0-1.0) % ESR 74 H (0-15) mm/hr PT (9.0-12.0) SEC INR (0.9-1.2) APTT (22.0-34.0) SEC Sodium (136-145) mmol/L Potassium (3.5-5.1) mmol/L Chloride (98-107) mmol/L Carbon Dioxide (21-32) mmol/L Anion Gap (7-13) mEq/L BUN (7-18) mg/dL Creatinine (0.70-1.30) mg/dL Est Cr Clr Drug Dosing mL/min Estimated GFR (MDRD) BUN/Creatinine Ratio (No establ ref range) Glucose (70-99) mg/dL Lactic Acid 1.0 (0.4-2.0) mmol/L Calcium (8.5-10.1) mg/dL Magnesium (1.8-2.4) mg/dL Total Bilirubin (0.2-1.0) mg/dL AST (15-37) U/L ALT (16-63) U/L Alkaline Phosphatase (46-116) U/L C-Reactive Protein (0.0-0.9) mg/dL Total Protein (6.4-8.2) g/dL Albumin (3.4-5.0) g/dL Globulin Albumin/Globulin Ratio Urine Color (YELLOW) Urine Appearance (CLEAR) Urine pH (5.0-9.0) Ur Specific [place] (1.005-1.030) Urine Protein (NEGATIVE) Urine Glucose (UA) (NEGATIVE) Urine Ketones (NEGATIVE) Urine Occult Blood (NEGATIVE) Urine Nitrite (NEGATIVE) Urine Bilirubin (NEGATIVE) Urine Urobilinogen (0.2-1.0) mg/dL Ur Leukocyte Esterase (NEGATIVE) Urine RBC /HPF Urine WBC (0-5/HPF) /HPF Ur Epithelial Cells (NOT SEEN) /HPF Amorphous Sediment (NOT SEEN) /HPF Urine Bacteria (0-FEW/HPF) /HPF Urine Mucus (NOT SEEN) /LPF Urine Opiates Screen Positive H (NEGATIVE) Ur Oxycodone Screen Negative (NEGATIVE) Urine Methadone Screen Negative (NEGATIVE) Ur Barbiturates Screen Negative (NEGATIVE) U Tricyclic Antidepress Negative (NEGATIVE) Ur Phencyclidine Scrn Negative (NEGATIVE) Ur Amphetamine Screen Negative (NEGATIVE) U Methamphetamines Scrn Negative (NEGATIVE) Urine MDMA Screen Negative (NEGATIVE) U Benzodiazepines Scrn Negative (NEGATIVE) Urine Cocaine Screen Negative (NEGATIVE) U Marijuana (THC) Screen Negative (NEGATIVE) Ethyl Alcohol (0) mg/dL 03/09/21 Range/Units 18:16 WBC (5.0-10.0) 10^3/uL RBC (4.6-6.2) 10^6/uL Hgb (14.0-18.0) g/dL Hct (40.0-54.0) % MCV (80-100) fL MCH (27.0-34.0) pg MCHC (33.0-35.0) g/dL Plt Count (150-450) 10^3/uL Neut % (Auto) (42.2-75.2) % Lymph % (Auto) (20.5-50.1) % [place] % (Auto) (2-8) % Eos % (Auto) (1.0-3.0) % Baso % (Auto) (0.0-1.0) % ESR (0-15) mm/hr PT (9.0-12.0) SEC INR (0.9-1.2) APTT (22.0-34.0) SEC Sodium (136-145) mmol/L Potassium (3.5-5.1) mmol/L Chloride (98-107) mmol/L Carbon Dioxide (21-32) mmol/L Anion Gap (7-13) mEq/L BUN (7-18) mg/dL Creatinine (0.70-1.30) mg/dL Est Cr Clr Drug Dosing mL/min Estimated GFR (MDRD) BUN/Creatinine Ratio (No establ ref range) Glucose (70-99) mg/dL Lactic Acid (0.4-2.0) mmol/L Calcium (8.5-10.1) mg/dL Magnesium (1.8-2.4) mg/dL Total Bilirubin (0.2-1.0) mg/dL AST (15-37) U/L ALT (16-63) U/L Alkaline Phosphatase (46-116) U/L C-Reactive Protein (0.0-0.9) mg/dL Total Protein (6.4-8.2) g/dL Albumin (3.4-5.0) g/dL Globulin Albumin/Globulin Ratio Urine Color Yellow (YELLOW) Urine Appearance Clear (CLEAR) Urine pH 6.0 (5.0-9.0) Ur Specific [place] 1.020 (1.005-1.030) Urine Protein 30 H (NEGATIVE) Urine Glucose (UA) Negative (NEGATIVE) Urine Ketones Negative (NEGATIVE) Urine Occult Blood Negative (NEGATIVE) Urine Nitrite Negative (NEGATIVE) Urine Bilirubin Negative (NEGATIVE) Urine Urobilinogen 0.2 (0.2-1.0) mg/dL Ur Leukocyte Esterase Negative (NEGATIVE) Urine RBC 0-5 /HPF Urine WBC 0-5 (0-5/HPF) /HPF Ur Epithelial Cells Rare (NOT SEEN) /HPF Amorphous Sediment Rare (NOT SEEN) /HPF Urine Bacteria Rare (0-FEW/HPF) /HPF Urine Mucus Rare (NOT SEEN) /LPF Urine Opiates Screen (NEGATIVE) Ur Oxycodone Screen (NEGATIVE) Urine Methadone Screen (NEGATIVE) Ur Barbiturates Screen (NEGATIVE) U Tricyclic Antidepress (NEGATIVE) Ur Phencyclidine Scrn (NEGATIVE) Ur Amphetamine Screen (NEGATIVE) U Methamphetamines Scrn (NEGATIVE) Urine MDMA Screen (NEGATIVE) U Benzodiazepines Scrn (NEGATIVE) Urine Cocaine Screen (NEGATIVE) U Marijuana (THC) Screen (NEGATIVE) Ethyl Alcohol (0) mg/dL Meds: Medications Discontinued Medications Generic Name Dose Route Start Last Admin Trade Name [place] PRN Reason Stop Dose Admin Hydromorphone HCl Confirm 03/09/21 18:10 03/09/21 18:15 Hydromorphone 1 Mg/Ml Syringe Administered 03/09/21 18:11 Not Given Dose 1 mg .ROUTE .STK-MED ONE Hydromorphone HCl 1 mg 03/09/21 18:13 03/09/21 18:14 Hydromorphone 1 Mg/Ml Syringe IVPUSH 03/09/21 18:14 1 mg ONETIME ONE Administration Vancomycin HCl 1,500 mg/ 500 mls @ 333.333 mls/hr 03/09/21 16:47 03/09/21 17:07 Sodium Chloride IV 03/09/21 18:16 333.333 mls/hr ONETIME ONE Administration - Radiology Interpretation Free Text/Narrative:: [facility] Final Radiology Report Call: [phone] assistance Online chat: [email or web address] Name: JORDIN ERICKSON Age: 60Years M Date: 03/09/2021 SSN: -- : [id number] Study: CR KNEE 3V RT Requesting Physician: Monica Mari Images: 3 Addl Studies: Provided Clinical History: Pain and erythema Contrast: Contrast Medium: Contrast Amount: Contrast Method: CONFIDENTIALITY STATEMENT This report is intended only for use by the referring physician, and only in accordance with law. If you received this in error, call [phone]. Page 1 of 1 PROCEDURE INFORMATION: Exam: XR Right Knee Exam date and time: 03/09/2021 3:43 PM Age: 60 years old Clinical indication: Pain; Knee; Right; Additional info: Pain and erythema TECHNIQUE: Imaging protocol: XR Right knee. Views: 3 views. COMPARISON: CR Knee 3V Rt 01/21/2016 8:38 PM FINDINGS: Bones/joints: There are mild degenerative changes of the knee joint, predominantly involving the medial joint compartment. Small joint effusion. There is no evidence of acute fracture. There is no evidence of joint malalignment or dislocation. Soft tissues: There are no soft tissue masses or fluid collections. IMPRESSION: 1. There are mild degenerative changes of the knee joint, predominantly involving the medial joint compartment. The vasculature demonstrates diffuse mild atherosclerotic calcification. 2. Small joint effusion. 3. No evidence of acute fracture. 4. No evidence of acute dislocation. Thank you for allowing us to participate in the care of your patient. Dictated and Authenticated by: Germán Tompkins DO 03/09/2021 4:02 PM Central Time ([place] & [place]) - Re-Assessments/Exams Free Text/Narrative Re-Assessment/Exam: 03/09/21 Xray of right knee obtained while blood work pending. Dilaudid 1mg administered. Case discussed with Dr Ochoa, hospitalist at [facility], who kindly agreed to accept patient for transfer. Findings of examination, lab work, imaging, and discussion with Dr. Ochoa reviewed with patient and daughter. Patient and daughter verbalized underst anding and agreement with the plan of care. Departure - Departure Time of Disposition: 17:23 Disposition: DC/Tfer to [facility] 02 Condition: Good Clinical Impression: Elevated erythrocyte sedimentation rate, Elevated C-reactive protein (CRP) Septic arthritis of knee, right Qualifiers: Septic arthritis organism: due to unspecified organism Qualified Code(s): M00.9 - Pyogenic arthritis, unspecified Right knee pain Qualifiers: Chronicity: acute Qualified Code(s): M25.561 - Pain in right knee - Discharge Information Referrals: PCP,None [Primary Care Provider] - Forms: ED Department Discharge, Interfacility Transfer NICOLASA
[2021-03-09 15:41] VITALS: BP 120/77; PULSE 83
--- NOTE | 2021-03-09 16:03 | CR ---
PROCEDURE INFORMATION: Exam: XR Right Knee Exam date and time: 03/09/2021 3:43 PM Age: 60 years old Clinical indication: Pain; Knee; Right; Additional info: Pain and erythema TECHNIQUE: Imaging protocol: XR Right knee. Views: 3 views. COMPARISON: CR Knee 3V Rt 01/21/2016 8:38 PM FINDINGS: Bones/joints: There are mild degenerative changes of the knee joint, predominantly involving the medial joint compartment. Small joint effusion. There is no evidence of acute fracture. There is no evidence of joint malalignment or dislocation. Soft tissues: There are no soft tissue masses or fluid collections. IMPRESSION: 1. There are mild degenerative changes of the knee joint, predominantly involving the medial joint compartment. The vasculature demonstrates diffuse mild atherosclerotic calcification. 2. Small joint effusion. 3. No evidence of acute fracture. 4. No evidence of acute dislocation.
[2021-03-09 16:06] LABS: ANION GAP 13.7 mEq/L (7-13); CHLORIDE,CL 99 mmol/L (98-107); SODIUM,NA 139 mmol/L (136-145)
[2021-03-09 16:31] LABS: PTT,PARTIAL THROMBOPLSTIN TIME 28.9 SEC (22.0-34.0)
[2021-03-09] MEDS ORDERED: HYDROmorphone 1 MG/ML Syringe ONE (18:10)
[2021-03-09] MEDS ORDERED: HYDROmorphone 1 MG/ML Syringe IVPUSH ONE (18:13)
[2021-03-09 18:36] LABS: AMPHETAMINES,URINE NEGATIVE (NEGATIVE); BARBITURATES,URINE NEGATIVE (NEGATIVE); BENZODIAZEPINE,URINE NEGATIVE (NEGATIVE); MDMA (ECSTASY), URINE NEGATIVE (NEGATIVE); METHADONE,URINE NEGATIVE (NEGATIVE); METHAMPHETAMINES,URINE NEGATIVE (NEGATIVE); OPIATES,URINE POSITIVE (NEGATIVE); OXYCODONE,URINE NEGATIVE (NEGATIVE); PHENCYCLIDINE,URINE NEGATIVE (NEGATIVE); TCA,URINE NEGATIVE (NEGATIVE)
== END 2021-03-09 18:25 ==
LOC: DL.ED 15:04
DX: M00.9 Pyogenic arthritis, unspecified (principal); R79.82 Elevated C-reactive protein (CRP); R70.0 Elevated erythrocyte sedimentation rate; I25.10 Atherosclerotic heart disease of native coronary artery without angina pectoris; E78.00 Pure hypercholesterolemia, unspecified; I10 Essential (primary) hypertension; K21.9 Gastro-esophageal reflux disease without esophagitis; M19.90 Unspecified osteoarthritis, unspecified site; E11.9 Type 2 diabetes mellitus without complications; Z88.6 Allergy status to analgesic agent; Z88.8 Allergy status to other drugs, medicaments and biological substances; Z88.1 Allergy status to other antibiotic agents; Z88.5 Allergy status to narcotic agent; Z79.82 Long term (current) use of aspirin; Z79.4 Long term (current) use of insulin; Z79.02 Long term (current) use of antithrombotics/antiplatelets; Z79.899 Other long term (current) drug therapy
CPT/HCPCS: 36415; 73562; 80053; 80305; 80307; 81001; 83605; 83735; 85025; 85610; 85651; 85730; 86140; 87040; 96365; 96375; 99285; J1170; J3370; J7040

== ENCOUNTER 2021-05-12 18:33 | Emergency (ER) | payer OTHER ==
[2021-05-12 18:51] VITALS: BP 134/83; PULSE 99
== END 2021-05-12 19:53 | disposition home or self-care (01) ==
LOC: DL.ED 18:33
DX: U07.1 COVID-19 (principal)
CPT/HCPCS: 99283; U0002

== ENCOUNTER 2021-11-28 15:44 | Emergency (ER) | payer OTHER, BC ==
[2021-11-28 16:04] VITALS: BP 118/81; PULSE 84
[2021-11-28] MEDS ORDERED: Aspirin 81 MG Tab.Chew PO ONE (16:12)
[2021-11-28] MEDS ORDERED: Ondansetron 4 MG/2 ML SDV IV ONE (16:14)
[2021-11-28] MEDS: Sodium Chloride 0.9% 10 ML Syringe FLUSH PRN ×2 (16:19→16:20)
[2021-11-28 17:02] LABS: PTT,PARTIAL THROMBOPLSTIN TIME 23.4 SEC (22.0-34.0)
[2021-11-28 17:03] LABS: ANION GAP 16.4 mEq/L (7-13)
[2021-11-28] MEDS ORDERED: Nitroglycerin/D5W 25 MG/250 ML BOTTLE IV SCH (17:15)
[2021-11-28 17:57] LABS: CORONAVIRUS COVID-19 NAA NEGATIVE (NEGATIVE); RESPIRATORY SYNCYTIAL VIR NAA NEGATIVE (NEGATIVE)
== END 2021-11-28 18:55 ==
LOC: DL.ED 15:44
DX: I20.0 Unstable angina (principal); I10 Essential (primary) hypertension; E78.00 Pure hypercholesterolemia, unspecified; K21.9 Gastro-esophageal reflux disease without esophagitis; E11.9 Type 2 diabetes mellitus without complications; E66.9 Obesity, unspecified; Z68.32 Body mass index [BMI] 32.0-32.9, adult; Z79.899 Other long term (current) drug therapy; Z20.822 Contact with and (suspected) exposure to COVID-19
CPT/HCPCS: 0241U; 36415; 71045; 80053; 82150; 83690; 83880; 84484; 85025; 85379; 85610; 85730; 93005; 96365; 96375; 99285; A9270; J2405; J3490; 93010

== ENCOUNTER 2021-12-21 13:49 | Emergency (ER) | payer BC, OTHER ==
[2021-12-21] MEDS ORDERED: Sodium Chloride 0.9% 10 ML Syringe FLUSH PRN (14:09)
[2021-12-21 14:12] VITALS: BP 115/93; PULSE 76
[2021-12-21 14:44] LABS: PTT,PARTIAL THROMBOPLSTIN TIME 24.3 SEC (22.0-34.0)
[2021-12-21 14:47] LABS: ANION GAP 11.3 mEq/L (7-13)
== END 2021-12-21 15:21 | disposition home or self-care (01) ==
LOC: DL.ED 13:49
DX: R07.89 Other chest pain (principal); I25.10 Atherosclerotic heart disease of native coronary artery without angina pectoris; E78.00 Pure hypercholesterolemia, unspecified; K21.9 Gastro-esophageal reflux disease without esophagitis; E11.9 Type 2 diabetes mellitus without complications; E66.9 Obesity, unspecified; Z68.33 Body mass index [BMI] 33.0-33.9, adult; Z79.4 Long term (current) use of insulin; Z88.5 Allergy status to narcotic agent; Z88.1 Allergy status to other antibiotic agents; Z79.899 Other long term (current) drug therapy
CPT/HCPCS: 36415; 71045; 80053; 82150; 83880; 84484; 85025; 85379; 85610; 85730; 93005; 93010; 99284; 99285-25

== ENCOUNTER 2022-10-13 12:45 | Emergency (ER) | payer BC, OTHER ==
[2022-10-13] MEDS ORDERED: Sodium Chloride 0.9% 10 ML Syringe FLUSH PRN (12:48)
[2022-10-13] MEDS ORDERED: Aspirin 81 MG Tab.Chew PO ONE (13:06)
[2022-10-13 13:10] VITALS: BP 138/91; PULSE 93
[2022-10-13 13:28] LABS: ANION GAP 13.4 mEq/L (7-13); CHLORIDE,CL 103 mmol/L (98-107); SODIUM,NA 141 mmol/L (136-145)
[2022-10-13 13:32] LABS: ESTIMATED GFR 44 mL/min (>=60)
== END 2022-10-13 13:48 | disposition home or self-care (01) ==
LOC: DL.ED 12:45
DX: R07.9 Chest pain, unspecified (principal); I25.10 Atherosclerotic heart disease of native coronary artery without angina pectoris; E78.00 Pure hypercholesterolemia, unspecified; I10 Essential (primary) hypertension; K21.9 Gastro-esophageal reflux disease without esophagitis; M19.90 Unspecified osteoarthritis, unspecified site; E11.9 Type 2 diabetes mellitus without complications; I25.2 Old myocardial infarction; E66.9 Obesity, unspecified; Z68.33 Body mass index [BMI] 33.0-33.9, adult; Z88.6 Allergy status to analgesic agent; Z88.8 Allergy status to other drugs, medicaments and biological substances; Z88.1 Allergy status to other antibiotic agents; Z88.5 Allergy status to narcotic agent; Z79.82 Long term (current) use of aspirin; Z79.02 Long term (current) use of antithrombotics/antiplatelets; Z79.4 Long term (current) use of insulin; Z79.899 Other long term (current) drug therapy
CPT/HCPCS: 36415; 71045; 80053; 82150; 83605; 83690; 83735; 84484; 85025; 85610; 86140; 93005; 99285; A9270; 93010; 99284

== ENCOUNTER 2022-11-29 18:57 | Emergency (ER) | payer OTHER | END 2022-11-29 20:17 | disposition left against medical advice (07) | LOC: DL.ED 18:57 | DX: Z53.21 Procedure and treatment not carried out due to patient leaving prior to being seen by health care provider (principal) ==

== ENCOUNTER 2024-08-16 20:32 | Emergency (ER) | payer OTHER | END 2024-08-16 22:30 | disposition left against medical advice (07) | LOC: DL.ED 20:32 | DX: Z53.21 Procedure and treatment not carried out due to patient leaving prior to being seen by health care provider (principal) ==

== ENCOUNTER 2025-05-19 05:56 | Day surgery (SDC) | payer SELFPAY ==
[2025-05-19] MEDS ORDERED: Propofol 200 MG/20 ML SDV IV ONE (05:57)
[2025-05-19] MEDS ORDERED: Lactated Ringers 1,000 ML IV ONE (05:57)
[2025-05-19] MEDS: Lactated Ringers 1,000 ML IV SCH (06:31)
[2025-05-19 09:08] VITALS: BP 144/89; PULSE 67
[2025-05-19] MEDS ORDERED: Propofol 200 MG/20 ML SDV ONE (09:19)
== END 2025-05-19 08:25 | disposition home or self-care (01) ==
LOC: DL.ENDO 05:56
PROVIDERS: ATTEND Internal Medicine Gastroenterology
DX: K31.89 Other diseases of stomach and duodenum (principal); K31.7 Polyp of stomach and duodenum; E11.9 Type 2 diabetes mellitus without complications; I10 Essential (primary) hypertension; R19.7 Diarrhea, unspecified; E66.09 Other obesity due to excess calories; I25.10 Atherosclerotic heart disease of native coronary artery without angina pectoris; F41.1 Generalized anxiety disorder; Z88.5 Allergy status to narcotic agent; Z88.8 Allergy status to other drugs, medicaments and biological substances; Z68.32 Body mass index [BMI] 32.0-32.9, adult; Z79.82 Long term (current) use of aspirin; Z79.899 Other long term (current) drug therapy
CPT/HCPCS: 00731; 43239; J2003; J2704; J7120

== ENCOUNTER 2025-08-01 19:33 | Emergency (ER) | payer OTHER ==
[2025-08-01 19:50] VITALS: BP 130/71; PULSE 85
[2025-08-01] MEDS: Amoxicillin/Clavulanate K 875-125 MG Tab PO ONE (20:07)
[2025-08-01] MEDS: Ketorolac 30 MG/ML SDV IM ONE (20:10)
[2025-08-01] MEDS: Take Home: Amoxicillin/Clavulanate K 875-125 MG Tab, 6 Tab Pack PO ONE (20:17)
== END 2025-08-01 20:27 | disposition home or self-care (01) ==
LOC: DL.ED 19:33
DX: H61.21 Impacted cerumen, right ear (principal); H66.91 Otitis media, unspecified, right ear; I12.9 Hypertensive chronic kidney disease with stage 1 through stage 4 chronic kidney disease, or unspecified chronic kidney disease; N18.9 Chronic kidney disease, unspecified; I25.10 Atherosclerotic heart disease of native coronary artery without angina pectoris; E78.00 Pure hypercholesterolemia, unspecified; K21.9 Gastro-esophageal reflux disease without esophagitis; E11.22 Type 2 diabetes mellitus with diabetic chronic kidney disease; Z95.5 Presence of coronary angioplasty implant and graft; Z88.5 Allergy status to narcotic agent; Z88.8 Allergy status to other drugs, medicaments and biological substances; Z79.02 Long term (current) use of antithrombotics/antiplatelets; Z79.899 Other long term (current) drug therapy; Z79.4 Long term (current) use of insulin; Z79.85 Long-term (current) use of injectable non-insulin antidiabetic drugs
CPT/HCPCS: 96372; 99282; A9270; J1885; 99283